=== PATIENT | male | born 1950 | race Caucasian/White ===

== ENCOUNTER 2021-04-16 08:13 | Day surgery (SDC) | payer MEDICARE, MEDICAID ==
[~2021-04-16] VITALS: Ht 170.2 cm; Wt 150.8 kg
[2021-04-16 09:31] LABS: BASO % 0.3 % (0.0-2.0); EOS # 0.5 K/mm3 (0.0-0.7); EOS % 3.9 % (0-4.0); GRAN # 9.2 K/mm3 (1.4-6.5); GRAN % 78.8 % (42.2-75.2); HEMOGLOBIN 11.7 g/dl (13.5-18.0); LYMPH % 8.4 % (20.0-51.0); MEAN CELL VOLUME 90 fl (80.0-100.0); MEAN CORPUSCULAR HEMOGLOBIN 30 pg (27.0-31.0); MEAN CORPUSCULAR HGB CONC 33 g/dl (33.0-37.0); MEAN PLATELET VOLUME 10.5 fl (7.4-10.4); MONO # 0.9 K/mm3 (0.1-0.6); MONO % 7.7 % (1.7-9.3); PLATELET COUNT 164 K/mm3 (130-400); RED BLOOD COUNT 3.96 M/mm3 (4.20-5.60); REDCELL DISTRIBUTION WIDTH-CV 15.9 % (11.5-14.5)
[2021-04-16] MEDS ORDERED: ZYLOPRIM 300MG300 MG PO (09:31)
[2021-04-16] MEDS ORDERED: TENORMIN100 MG PO (09:31)
[2021-04-16 09:32] LABS: HEMATOCRIT 35.8 % (42.0-52.0)
[2021-04-16] MEDS ORDERED: ELIQUIS 5MG PO (09:32)
[2021-04-16] MEDS ORDERED: ULORIC40 MG PO (09:32)
[2021-04-16] MEDS ORDERED: LEVOXYL0.025 MG PO (09:32)
[2021-04-16] MEDS ORDERED: LASIX 40MG TABL40 MG PO (09:32)
[2021-04-16] MEDS ORDERED: MAG DELAY64 M1 PO (09:33)
[2021-04-16] MEDS ORDERED: KLOR-CON SPRIN10 MEQ PO (09:33)
[2021-04-16] MEDS ORDERED: DEMADEX 20MG20 M1 PO (09:34)
[2021-04-16 09:35] VITALS: BP 116/67; PULSE 64; TEMP 97.4
[2021-04-16 10:25] VITALS: BP 113/60; PULSE 64; TEMP 97.4
--- NOTE | 2021-04-16 10:25 | NUR ---
Patient arrives to [facility] [place] [address] via cart, accompanied by LEARNING PROGRAM MANAGER Brook Gracia. He is drowsy, but awakens easily and is appropriate in conversation with staff. PIV to TKO. Monitoring is applied - VSS On room air. He denies pain, nausea, or needs at this time. He has 10 minutes of flat time to complete. Discharge criteria is discussed with the patient.
[2021-04-16 10:40] VITALS: BP 103/55; PULSE 53
[2021-04-16 10:55] VITALS: BP 105/67; PULSE 54
--- NOTE | 2021-04-16 10:55 | NUR ---
Patient has completed flat time. He is sitting up in bed, eating pudding and drinking juice. Denies any complaints.
--- NOTE | 2021-04-16 11:34 | NUR ---
Patient has met discharge criteria. Discharge instructions are discussed with the patient. He denies any questions and verbalizes understanding. PIV is removed with catheter intact and hemostasis achieved. Staff assists patient to change to his clothing. He is escorted to the exit via wheelchair by staff. He is discharged to home to the care of his friends, who drive him home in a private vehicle at 1134.
[2021-04-16 11:47] VITALS: BP 103/69; PULSE 50
== END 2021-04-16 11:34 | disposition home or self-care (01) ==
LOC: SDCO 08:13 → EDSTATUS 10:00 → SDCO 10:00
PROVIDERS: Pathology Anatomic Pathology & Clinical Pathology
DX: C90.30 Solitary plasmacytoma not having achieved remission (principal); D64.9 Anemia, unspecified
CPT/HCPCS: J2704; J7120

== ENCOUNTER 2021-10-29 07:43 | Day surgery (SDC) | payer MEDICARE, MEDICAID ==
[~2021-10-29] VITALS: Ht 170.2 cm; Wt 150.8 kg
[~2021-10-29 07:43] MED LIST: DEMADEX 20MG20 M1 PO; ELIQUIS 5MG PO; KLOR-CON SPRIN10 MEQ PO; LASIX 40MG TABL40 MG PO; LEVOXYL0.025 MG PO; MAG DELAY64 M1 PO; TENORMIN100 MG PO; ULORIC40 MG PO; ZYLOPRIM 300MG300 MG PO
[2021-10-29 08:44] VITALS: BP 164/90; PULSE 69; TEMP 98.2
[2021-10-29] MEDS ORDERED: CYMBALTA 30MG30 MG PO (08:51)
[2021-10-29 09:11] LABS: BASO % 0.3 % (0.0-2.0); EOS # 0.5 K/mm3 (0.0-0.7); EOS % 5.1 % (0.0-4.0); GRAN # 6.8 K/mm3 (1.4-6.5); GRAN % 75.3 % (42.2-75.2); HEMATOCRIT 37.9 % (42.0-52.0); HEMOGLOBIN 12.6 g/dl (13.5-18.0); LYMPH # 0.9 K/mm3 (1.2-3.4); LYMPH % 10.5 % (20.0-51.0); MEAN CELL VOLUME 90 fl (80.0-100.0); MEAN CORPUSCULAR HEMOGLOBIN 30 pg (27-31); MEAN CORPUSCULAR HGB CONC 33 g/dl (33.0-37.0); MEAN PLATELET VOLUME 10.9 fl (7.4-10.4); MONO # 0.7 K/mm3 (0.1-0.6); MONO % 8.1 % (1.7-9.3); PLATELET COUNT 157 K/mm3 (130-400); REDCELL DISTRIBUTION WIDTH-CV 15.4 % (11.5-14.5)
[2021-10-29 10:35] VITALS: BP 92/56; PULSE 74; TEMP 97.2
[2021-10-29 10:50] VITALS: BP 93/44; PULSE 72
[2021-10-29 11:05] VITALS: BP 121/83; PULSE 66
[2021-10-29 11:20] VITALS: BP 136/81; PULSE 79
[2021-10-29 11:57] VITALS: BP 109/49; PULSE 71
--- NOTE | 2021-10-29 13:25 | NUR ---
1035: Patient arrived back into [facility] from PACU. Patient is alert and awake. Blood pressure low upon transfer to room. Report received from FRANCISCO JAVIER Acevedo. Patient refusing food and drink at this time. Patient denies nausea and pain. at bedside. Call light left within reach. 1050: Patient states he is having leg pain. Patient helped on the side of cart. Friend, Vignesh, at bedside. 1105: Patient states he would like to try water and saltine crackers. 1120: Patient tolerated saltine crackers and water. Patient got dressed with assistance. IV removed without complications and coband applied. 1145: Went through discharge instructions with patient and friend. Escorted to patient entrance via wheelchair. Patient got into personal vehicle unassisted and left in the care of their family.
== END 2021-10-29 12:05 | disposition home or self-care (01) ==
LOC: SDCO 07:43
PROVIDERS: Pathology Anatomic Pathology & Clinical Pathology
DX: C96.9 Malignant neoplasm of lymphoid, hematopoietic and related tissue, unspecified (principal); D47.2 Monoclonal gammopathy; Z87.891 Personal history of nicotine dependence
CPT/HCPCS: J2704; J7120

== ENCOUNTER 2022-08-14 12:43 | Day surgery (SDC) | payer MEDICARE, MEDICAID ==
[2022-08-14] VITALS (7 sets, daily range): BP systolic 127–144; BP diastolic 60–86; PULSE 60–86; TEMP 97.6
[~2022-08-14] VITALS: Ht 170.2 cm; Wt 147.1 kg
[~2022-08-14 12:43] MED LIST changes: +CYMBALTA 30MG30 MG PO
--- NOTE | 2022-08-14 14:30 | NUR ---
RECIEVED REPORT FROM HAM GUZMÁN RN. PT ALERT AND ORIENTED. READY FOR SNACKS AND A DRINK. VITALS WNL
[2022-08-14 14:36] LABS: INR 1.7 (0.8-3.0); PROTHROMBIN TIME 19.4 SECONDS (9.7-12.8)
[2022-08-14] MEDS ORDERED: ULORIC80 MG PO (14:44)
[2022-08-14] MEDS ORDERED: CARDIZEM120 MG PO (14:45)
[2022-08-14] MEDS ORDERED: COZAAR 25MG25 MG/TAB PO (14:46)
[2022-08-14] MEDS ORDERED: SOAANZ40 MG PO (14:46)
[2022-08-14 14:48] LABS: THYROID STIMULATING HORMONE 2.933 uIU/mL (0.350-4.940)
[2022-08-14] MEDS ORDERED: FLEXERIL5 MG PO (14:48)
[2022-08-14] MEDS ORDERED: MAG-OX 400400 MG/TAB PO (14:48)
[2022-08-14] MEDS ORDERED: CORDARONE200 MG/TAB PO (15:01)
--- NOTE | 2022-08-14 16:30 | NUR ---
DISCHARGES GONE OVER WITH PT AND TRANSPORT PERSON. [facility]. IV REMOVED. PT USED COMMODE. URINE CLEAR. HELPED TRANSPORT LOAD PT INTO VAN.
== END 2022-08-14 16:30 | disposition home or self-care (01) ==
LOC: COL.CAR 12:43
PROVIDERS: Internal Medicine Interventional Cardiology
DX: I48.0 Paroxysmal atrial fibrillation (principal); T14.8XXD Other injury of unspecified body region, subsequent encounter; R60.0 Localized edema; G47.33 Obstructive sleep apnea (adult) (pediatric)
CPT/HCPCS: J2704

== ENCOUNTER 2022-09-17 11:30 | Day surgery (SDC) | payer MEDICARE, MEDICAID ==
[~2022-09-17] VITALS: Ht 170.5 cm; Wt 140.0 kg
[2022-09-17] VITALS (9 sets, daily range): BP systolic 117–140; BP diastolic 66–100; PULSE 56–66; TEMP 97.8
[~2022-09-17 11:30] MED LIST changes: +CARDIZEM120 MG PO; +CORDARONE200 MG/TAB PO; +COZAAR 25MG25 MG/TAB PO; +FLEXERIL5 MG PO; +MAG-OX 400400 MG/TAB PO; +SOAANZ40 MG PO; +ULORIC80 MG PO
[2022-09-17 14:28] LABS: CALCIUM 9.4 mg/dL (8.4-10.2); CREATININE, serum 1.65 mg/dL (0.72-1.25); POTASSIUM 3.9 mmol/L (3.5-4.5)
[2022-09-17] MEDS ORDERED: CORDARONE200 MG/TAB PO (14:47)
[2022-09-17] MEDS ORDERED: CYMBALTA 30MG30 MG PO (14:47)
[2022-09-17] MEDS ORDERED: MIRALAX PA17 GM/Dose PO (14:52)
[2022-09-17] MEDS ORDERED: TYLENOL 325MG325 MG PO (15:07)
[2022-09-17] MEDS ORDERED: MOTRIN 200200 MG/TAB PO (15:08)
[2022-09-17] MEDS ORDERED: ASPERCREME ARTH50 GM TP (15:09)
[2022-09-17] MEDS ORDERED: NORCO 325 MG-51 TAB PO (15:09)
[2022-09-17] MEDS ORDERED: ROBITUSSIN100 MG/5 M PO (15:10)
[2022-09-17] MEDS ORDERED: MILK OF MA400 MG/52 PO (15:11)
--- NOTE | 2022-09-17 15:19 | NUR ---
PLEASE SEE MERGE DOCUMENTATION FOR RECORD OF INTERVENTIONS, VITAL SIGNS AND MEDICATIONS ADMINISTERED DURING PROCEDURE.
[2022-09-17 15:43] LABS: HEMATOCRIT 33.1 % (42.0-52.0); HEMOGLOBIN 10.5 g/dl (13.5-18.0); MEAN CELL VOLUME 86 fl (80.0-100.0); MEAN CORPUSCULAR HEMOGLOBIN 27 pg (27-31); MEAN CORPUSCULAR HGB CONC 32 g/dl (33.0-37.0); MEAN PLATELET VOLUME 9.3 fl (7.4-10.4); PLATELET COUNT 209 K/mm3 (130-400); RED BLOOD COUNT 3.83 M/mm3 (4.20-5.60); REDCELL DISTRIBUTION WIDTH-CV 16.1 % (11.5-14.5)
[2022-09-17 16:00] LABS: INR 1.2 (0.8-3.0); PARTIAL THROMBOPLASTIN TIME 35.2 SECONDS (26.0-37.0); PROTHROMBIN TIME 13.6 SECONDS (9.7-12.8)
--- NOTE | 2022-09-17 16:00 | NUR ---
pt returned to [facility] via bed from agriculture laborer, awake and alert, no c/o pain, TR band on right wrist, no signs of bleeding or swelling, pt HOB elevated takes pepsi, call light in reach.
--- NOTE | 2022-09-17 16:45 | NUR ---
pt using urinal, missed urinal, voided large amoumt, bed change done, meal here, pt HOB elevated
--- NOTE | 2022-09-17 18:00 | NUR ---
started release of TR band, 2cc over 15 min with no bleeding, oozing or swelling. bandaid over site and coban for support. instructed pt about using right hand/arm to push or pull or life, left brace on to help remind him. reviewed inst. with pt on activity, no med changes and will have next appt. scheduled. inst. pt sending with him orders how to take care of site for nursing personel.
--- NOTE | 2022-09-17 18:15 | NUR ---
pt used urinal x2 before getting in w/c, 400cc and 500cc of clear yellow urine. Assited pt to side of bed, pt able to stand and pivot to w/c with 3 assist, not using right hand. iv d'cd intact. pt discharged via his own w/c, and gait belt to ER entrance at 1840 for Van transport to Nursing facility, brief inst. given to career technical counselor at this time on precaution of site. Facility called then, gave report to Edda and all papers, inst., health summary, med list and appts sent with pt
== END 2022-09-17 18:45 ==
LOC: COL.CAR 11:30
PROVIDERS: Internal Medicine Interventional Cardiology
DX: R07.9 Chest pain, unspecified (principal); R94.39 Abnormal result of other cardiovascular function study; R94.31 Abnormal electrocardiogram [ECG] [EKG]; I48.0 Paroxysmal atrial fibrillation; I10 Essential (primary) hypertension; Z98.818 Other dental procedure status
CPT/HCPCS: C1769; J1644; J1940; J2250; J3010